=== PATIENT | female | born 1985 | race Caucasian/White ===

== ENCOUNTER → 2016-09-06 | Outpatient (CLI) | payer BC ==
--- NOTE | 2016-09-06 17:00 | US ---
Examination: Greater than 14 weeks transabdominal ultrasound with color Doppler and M-mode evaluatio n. HISTORY: FINDINGS: LMP is 04/12/2016 EVALUATION: Posterior placenta with a cephalic lie and grade 1. Visually amniotic fluid is wit hin normal limits. Three-vessel cord is seen. Ventricles are within normal limits. Four chamber heart is noted. Heart rate is 153 beats per minute. BIOMETRY AND GESTATIONAL AGE: Biparietal diameter 4.6 cm. The abdominal circumference measures 14.9 cm. The femoral length is 3.4 cm with head circumference of 17.1 cm. Gestational age is 20 weeks and 0 days. The expected date of delivery is approximately 01/24/2017. Fetus weight is 348 grams. Overall the fetus is in the 15th per centile. Other detail anatomy summarized into PACs sheet after the images. No anatomical anomalies. IMPRESSION: Single active IU with cephalic fetus. Posterior placenta with grade 1, no placenta previa. No anomalies are seen. Amniotic fluid appears within normal limits.
== END ==
LOC: MW.US 14:00
PROVIDERS: ATTEND Obstetrics & Gynecology
DX: Z34.92 Encounter for supervision of normal pregnancy, unspecified, second trimester (principal); Z3A.20 20 weeks gestation of pregnancy
CPT/HCPCS: 76805; 76805-26

== ENCOUNTER → 2016-09-13 | Outpatient (CLI) | payer BC | LOC: MW.CHOBGYN 13:08 | PROVIDERS: ATTEND Obstetrics & Gynecology | DX: Z34.90 Encounter for supervision of normal pregnancy, unspecified, unspecified trimester (principal) | CPT/HCPCS: 81003 ==

== ENCOUNTER → 2016-10-11 | Outpatient (CLI) | payer BC | LOC: MW.CHOBGYN 09:05 | PROVIDERS: ATTEND Obstetrics & Gynecology | DX: Z34.90 Encounter for supervision of normal pregnancy, unspecified, unspecified trimester (principal) | CPT/HCPCS: 36415; 81003; 82950; 85027 ==

== ENCOUNTER → 2016-11-08 | Outpatient (CLI) | payer BC | LOC: MW.OBCHECK 13:04 → MW.CHOBGYN 13:04 | PROVIDERS: ATTEND Obstetrics & Gynecology | DX: Z34.90 Encounter for supervision of normal pregnancy, unspecified, unspecified trimester (principal) | CPT/HCPCS: 81003 ==

== ENCOUNTER 2017-01-18 02:36 | Inpatient (IN) | payer SELFPAY ==
[2017-01-18] MEDS ORDERED: Carboprost Tromethamine 250 MCG/1 ML Amp IM PRN (03:38)
[2017-01-18] MEDS ORDERED: Methylergonovine 0.2 MG/1 ML Amp IM PRN (03:38)
[2017-01-18] MEDS ORDERED: Nalbuphine 10 MG/1 ML Vial IVPUSH PRN (03:38)
[2017-01-18] MEDS ORDERED: Misoprostol 200 MCG Tab PO PRN (03:38)
[2017-01-18] MEDS ORDERED: Lidocaine 1% 50 ML MDV INJECT PRN (03:38)
[2017-01-18] MEDS ORDERED: Sodium Chloride 0.9% 2.5 ML Syringe FLUSH PRN (03:38)
[2017-01-18] MEDS ORDERED: Water For Irrigation,Sterile 1,000 ML Container IRR PRN (03:38)
[2017-01-18] MEDS ORDERED: Butorphanol 1 MG/ML SDV IVPUSH PRN (03:38)
[2017-01-18] MEDS ORDERED: Sodium Chloride 0.9% 10 ML Syringe FLUSH PRN (03:38)
[2017-01-18] MEDS ORDERED: Oxytocin/Lactated Ringers 30 UNIT/500 ML BAG IV ONE (03:39)
[2017-01-18] MEDS ORDERED: Lactated Ringers 1,000 ML IV SCH (03:45)
[2017-01-18] MEDS ORDERED: Oxytocin/Lactated Ringers 30 UNIT/500 ML BAG ONE (08:04)
--- NOTE | 2017-01-18 09:01 | PCM.LDHP ---
L&D History of Present Illness - General Date of Service: 01/18/17 Admit Problem/Dx: Patient Status Order with Admit Dx/Problem 01/18/17 03:04 Patient Status [ADT] Routine 01/18/17 03:38 Patient Status [ADT] Routine Admission Diagnosis/Problem Admission Diagnosis/Problem 01/18/17 08:58 31 yo EDC 07/28/2016 39wks O+, RI, GBS neg. Admit for SROM clear Source of Information: Patient History Limitations: Reports: No Limitations - History of Present Illness Pain Score: 0 Improves with: Reports: None Worsens with: Reports: None Associated Symptoms: Reports: N - Related Data Allergies/Adverse Reactions: Allergies Allergy/AdvReac Type Severity Reaction Status Date / Time seasonal allergies Allergy Cannot Uncoded 01/18/17 05:18 Remember Past Medical History - Past Health History Medical/Surgical History: Denies Medical/Surgical History HEENT History: Reports: Other (See Below) Other HEENT History: Wearing contact lenses for nearsightedness ADULT CAREGIVER History: Reports: Hematologic History: Reports: Anemia, Other (See Below) Other Hematologic History: Hx of anemia as a teenager, needed blood transfusion , unknown etiology. Social & Family History - Family History Cardiac: Reports: Hypertension OBGYN: Reports: Hematologic: Reports: Anemia Oncologic: Reports: Lung - Tobacco Use Smoking Status *Q: Never Smoker Second Hand Smoke Exposure: No - Caffeine Use Caffeine Use: Reports: None - Recreational Drug Use Recreational Drug Use: No H&P Review of Systems - Review of Systems: Review Of Systems: See Below General: Reports: No Symptoms HEENT: Reports: No Symptoms Pulmonary: Reports: No Symptoms Cardiovascular: Reports: No Symptoms Gastrointestinal: Reports: No Symptoms Genitourinary: Reports: No Symptoms Musculoskeletal: Reports: No Symptoms Skin: Reports: No Symptoms Psychiatric: Reports: No Symptoms Neurological: Reports: No Symptoms Hematologic/Lymphatic: Reports: No Symptoms Immunologic: Reports: No Symptoms L&D Exam - Exam Exam: See Below - Vital Signs Weight: 69.853 kg - OB Specific Contraction Intensity: Strong Movement: Active Heart Tones: Present Heart Rate (FHR) Variability: Moderate (6-25 bmp) Presentation: Vertex Estimated Weight: 3500 - Exam General: Alert, Oriented, Cooperative HEENT: Hearing Intact Lungs: Normal Respiratory Effort Cardiovascular: Regular Rhythm Abdomen: Soft (gravid) Rectal Exam: Deferred Genitourinary: Normal external exam, Normal bimanual exam, Cervical dilitation, Cervical fluid Back Exam: Full Range of Motion Extremities: Normal Inspection Skin: Warm, Dry, Intact Neurological: Cranial Nerves Intact Psychiatric: Alert, Normal Affect, Normal Mood - Patient Data Lab Results Last 24 hrs: Laboratory Results - last 24 hr 01/18/17 01/18/17 01/18/17 Range/Units 02:52 02:52 03:47 WBC 8.52 (4.0-11.0) K/uL RBC 3.90 L (4.30-5.90) M/uL Hgb 10.5 L (12.0-16.0) g/dL Hct 32.5 L (36.0-46.0) % MCV 83.3 (80.0-98.0) fL MCH 26.9 L (27.0-32.0) pg MCHC 32.3 (31.0-37.0) g/dL RDW Std Deviation 47.3 (28.0-62.0) fl RDW Coeff of Samuel 16 H (11.0-15.0) % Plt Count 318 (150-400) K/uL MPV 10.50 (7.40-12.00) fL Nucleated RBC % 0.0 /100WBC Nucleated RBCs # 0 K/uL Urine Color YELLOW Urine Appearance CLEAR Urine pH 6.0 (5.0-8.0) Ur Specific [place] 1.010 (1.001-1.035) Urine Protein NEGATIVE (NEGATIVE) mg/dL Urine Glucose (UA) NEGATIVE (NEGATIVE) mg/dL Urine Ketones TRACE H (NEGATIVE) mg/dL Urine Occult Blood NEGATIVE (NEGATIVE) Urine Nitrite NEGATIVE (NEGATIVE) Urine Bilirubin NEGATIVE (NEGATIVE) Urine Urobilinogen 1.0 (<2.0) EU/dL Ur Leukocyte Esterase NEGATIVE (NEGATIVE) Membrane Rupture POSITIVE Blood Type Antibody Screen 01/18/17 Range/Units 03:47 WBC (4.0-11.0) K/uL RBC (4.30-5.90) M/uL Hgb (12.0-16.0) g/dL Hct (36.0-46.0) % MCV (80.0-98.0) fL MCH (27.0-32.0) pg MCHC (31.0-37.0) g/dL RDW Std Deviation (28.0-62.0) fl RDW Coeff of Samuel (11.0-15.0) % Plt Count (150-400) K/uL MPV (7.40-12.00) fL Nucleated RBC % /100WBC Nucleated RBCs # K/uL Urine Color Urine Appearance Urine pH (5.0-8.0) Ur Specific [place] (1.001-1.035) Urine Protein (NEGATIVE) mg/dL Urine Glucose (UA) (NEGATIVE) mg/dL Urine Ketones (NEGATIVE) mg/dL Urine Occult Blood (NEGATIVE) Urine Nitrite (NEGATIVE) Urine Bilirubin (NEGATIVE) Urine Urobilinogen (<2.0) EU/dL Ur Leukocyte Esterase (NEGATIVE) Membrane Rupture Blood Type O POSITIVE Antibody Screen NEGATIVE Result Diagrams: 01/18/17 03:47 - Problem List (1) Supervision of normal IUP (intrauterine ) in multigravida SNOMED Code(s): 878669741, 536235791, 294607985 ICD Code: Z34.80 - ENCOUNTER FOR SUPRVSN OF NORMAL , UNSP TRIMESTER Status: Acute Priority: High Current Visit: Yes Qualifiers: Trimester: third trimester Qualified Code(s): Z34.83 - Encounter for supervision of other normal , third trimester (2) SROM (spontaneous rupture of membranes) SNOMED Code(s): 048724815 ICD Code: [id number] - Status: Acute Priority: High Current Visit: Yes Problem List Initiated/Reviewed/Updated: Yes Orders Last 24hrs: Active Orders 24 hr Category Date Time Status Patient Status [ADT] Routine ADT 01/18/17 03:04 Active Patient Status [ADT] Routine ADT 01/18/17 03:38 Active Heart Tones [RC] CONTINUOUS Care 01/18/17 03:38 Active Non Stress Test [RC] PER UNIT ROUTINE Care 01/18/17 03:04 Active Non Stress Test [RC] PER UNIT ROUTINE Care 01/18/17 03:38 Active May Shower [RC] ASDIRECTED Care 01/18/17 03:38 Active Notify Provider [RC] PRN Care 01/18/17 03:38 Active Up ad Loni [RC] ASDIRECTED Care 01/18/17 03:04 Active Up ad Loni [RC] ASDIRECTED Care 01/18/17 03:38 Active Vaginal Exam [RC] Click To Edit Care 01/18/17 03:04 Active Vaginal Exam [RC] PRN Care 01/18/17 03:38 Active Vital Signs [RC] PER UNIT ROUTINE Care 01/18/17 03:04 Active Vital Signs [RC] PER UNIT ROUTINE Care 01/18/17 03:38 Active Butorphanol [Stadol] Med 01/18/17 03:38 Active 1 mg IVPUSH Q1H PRN Carboprost Tromethamine [Hemabate DS] Med 01/18/17 03:38 Active 250 mcg IM ASDIRECTED PRN Lactated Ringers [Ringers, Lactated] 1,000 ml Med 01/18/17 03:45 Active IV ASDIRECTED Lidocaine 1% [Xylocaine 1%] Med 01/18/17 03:38 Active 50 ml INJECT .ONCE PRN Methylergonovine [Methergine] Med 01/18/17 03:38 Active 0.2 mg IM ASDIRECTED PRN Misoprostol [Cytotec] Med 01/18/17 03:38 Active 200 mcg PO .ONCE PRN Sodium Chloride 0.9% [Saline Flush] Med 01/18/17 03:38 Active 10 ml FLUSH ASDIRECTED PRN Sodium Chloride 0.9% [Saline Flush] Med 01/18/17 03:38 Active 2.5 ml FLUSH ASDIRECTED PRN Water For Irrigation,Sterile [Sterile Water for Med 01/18/17 03:38 Active Irrigation] 1,000 ml IRR ASDIRECTED PRN Scalp Electrode [WOMSER] Per Unit Routine Oth 01/18/17 03:38 Ordered Peripheral IV Insertion Adult [OM.PC] Routine Oth 01/18/17 03:38 Ordered Resuscitation Status Routine Resus Stat 01/18/17 03:04 Ordered Medication Orders Butorphanol Tartrate (Stadol) 1 mg IVPUSH Q1H PRN PRN Reason: Pain Last Admin: 01/18/17 04:40 Dose: 1 mg Carboprost Tromethamine (Hemabate Ds) 250 mcg IM ASDIRECTED PRN PRN Reason: Post Hemorrhage Lactated Ringer's (Ringers, Lactated) 1,000 mls @ 150 mls/hr IV ASDIRECTED JEREMY Last Admin: 01/18/17 03:50 Dose: 999 mls/hr Lidocaine HCl (Xylocaine 1%) 50 ml INJECT .ONCE PRN PRN Reason: Laceration repair Methylergonovine Maleate (Methergine) 0.2 mg IM ASDIRECTED PRN PRN Reason: Post Hemorrhage Misoprostol (Cytotec) 200 mcg PO .ONCE PRN PRN Reason: Post Hemorrhage Sodium Chloride (Saline Flush) 10 ml FLUSH ASDIRECTED PRN PRN Reason: Keep Vein Open Sodium Chloride (Saline Flush) 2.5 ml FLUSH ASDIRECTED PRN PRN Reason: Keep Vein Open Sterile Water (Sterile Water For Irrigation) 1,000 ml IRR ASDIRECTED PRN PRN Reason: delivery Assessment/Plan Comment:: Labor A: 31 yo EDC 07/28/2016 39wks O+, RI, GBS neg. Admit for SROM clear P: Admit to l&D, anticipate
--- NOTE | 2017-01-18 09:07 | PCM.DEL ---
L & D Note - General Info Date of Service: 01/18/17 Mother's Due Date: 01/25/17 - Delivery Note Labor: spontaneous Delivery Outcome: Livebirth Infant Delivery Method: Spontaneous Vaginal Delivery Infant Delivery Mode: Spontaneous Presentation: Vertex Nuchal Cord: Present Anesthesia Type: None Episiotomy Type: None Laceration: none Placenta: intact, spontaneous Cord: 3 vessels Estimated Blood Loss: 100 Resuscitation Needed: No : Stimulated Score 1 min: 8 Score 5 min: 9 Second Stage Interventions: Reports: Pushing Effectively, Pushing, Knee Chest Position, Pushing, McRobert's Position, Pushing, Pulls Own Legs Back Delivery Comments (Free Text/Narrative):: of viable female over intact perineum, Head delivered with great pushing, shoulders and body followed easily. Infant to mother abd, spont cry, RN at bs for eval. Delayed cord clamping. Pitocin to IVF. Cord clamped x2 and cut by FOB. Cord blood collected. Placenta delivered grossly intact with gentle traction. Inspection noted intact perineum. EBL 100cc. APGARS 8/9, Wt: pending bonding. Counts correct 04/21. Mother and baby left in stable condition for recovery with FOB at bs. Beautiful delivery... - General Info Date of Service: 01/18/17 Admission Dx/Problem (Free Text): Patient Status Order with Admit Dx/Problem 01/18/17 03:04 Patient Status [ADT] Routine 01/18/17 03:38 Patient Status [ADT] Routine Admission Diagnosis/Problem Admission Diagnosis/Problem 01/18/17 08:58 31 yo EDC 07/28/2016 39wks O+, RI, GBS neg. Admit for SROM clear Functional Status: Reports: pain controlled, tolerating diet, urinating - Review of Systems General: Reports: No Symptoms HEENT: Reports: no symptoms Pulmonary: Reports: no symptoms Cardiovascular: Reports: No Symptoms Gastrointestinal: Reports: No symptoms Genitourinary: Reports: no symptoms Musculoskeletal: Reports: no symptoms Skin: Reports: no symptoms Neurological: Reports: No Symptoms Psychiatric: Reports: no symptoms - Patient Data Weight - most recent: 69.853 kg Lab Results last 24 hrs: Laboratory Results - last 24 hr 01/18/17 01/18/17 01/18/17 Range/Units 02:52 02:52 03:47 WBC 8.52 (4.0-11.0) K/uL RBC 3.90 L (4.30-5.90) M/uL Hgb 10.5 L (12.0-16.0) g/dL Hct 32.5 L (36.0-46.0) % MCV 83.3 (80.0-98.0) fL MCH 26.9 L (27.0-32.0) pg MCHC 32.3 (31.0-37.0) g/dL RDW Std Deviation 47.3 (28.0-62.0) fl RDW Coeff of Samuel 16 H (11.0-15.0) % Plt Count 318 (150-400) K/uL MPV 10.50 (7.40-12.00) fL Nucleated RBC % 0.0 /100WBC Nucleated RBCs # 0 K/uL Urine Color YELLOW Urine Appearance CLEAR Urine pH 6.0 (5.0-8.0) Ur Specific [place] 1.010 (1.001-1.035) Urine Protein NEGATIVE (NEGATIVE) mg/dL Urine Glucose (UA) NEGATIVE (NEGATIVE) mg/dL Urine Ketones TRACE H (NEGATIVE) mg/dL Urine Occult Blood NEGATIVE (NEGATIVE) Urine Nitrite NEGATIVE (NEGATIVE) Urine Bilirubin NEGATIVE (NEGATIVE) Urine Urobilinogen 1.0 (<2.0) EU/dL Ur Leukocyte Esterase NEGATIVE (NEGATIVE) Membrane Rupture POSITIVE Blood Type Antibody Screen 01/18/17 Range/Units 03:47 WBC (4.0-11.0) K/uL RBC (4.30-5.90) M/uL Hgb (12.0-16.0) g/dL Hct (36.0-46.0) % MCV (80.0-98.0) fL MCH (27.0-32.0) pg MCHC (31.0-37.0) g/dL RDW Std Deviation (28.0-62.0) fl RDW Coeff of Samuel (11.0-15.0) % Plt Count (150-400) K/uL MPV (7.40-12.00) fL Nucleated RBC % /100WBC Nucleated RBCs # K/uL Urine Color Urine Appearance Urine pH (5.0-8.0) Ur Specific [place] (1.001-1.035) Urine Protein (NEGATIVE) mg/dL Urine Glucose (UA) (NEGATIVE) mg/dL Urine Ketones (NEGATIVE) mg/dL Urine Occult Blood (NEGATIVE) Urine Nitrite (NEGATIVE) Urine Bilirubin (NEGATIVE) Urine Urobilinogen (<2.0) EU/dL Ur Leukocyte Esterase (NEGATIVE) Membrane Rupture Blood Type O POSITIVE Antibody Screen NEGATIVE Med Orders - Current: Current Medications Butorphanol Tartrate (Stadol) 1 mg IVPUSH Q1H PRN PRN Reason: Pain Last Admin: 01/18/17 04:40 Dose: 1 mg Carboprost Tromethamine (Hemabate Ds) 250 mcg IM ASDIRECTED PRN PRN Reason: Post Hemorrhage Lactated Ringer's (Ringers, Lactated) 1,000 mls @ 150 mls/hr IV ASDIRECTED JEREMY Last Admin: 01/18/17 03:50 Dose: 999 mls/hr Lidocaine HCl (Xylocaine 1%) 50 ml INJECT .ONCE PRN PRN Reason: Laceration repair Methylergonovine Maleate (Methergine) 0.2 mg IM ASDIRECTED PRN PRN Reason: Post Hemorrhage Misoprostol (Cytotec) 200 mcg PO .ONCE PRN PRN Reason: Post Hemorrhage Sodium Chloride (Saline Flush) 10 ml FLUSH ASDIRECTED PRN PRN Reason: Keep Vein Open Sodium Chloride (Saline Flush) 2.5 ml FLUSH ASDIRECTED PRN PRN Reason: Keep Vein Open Sterile Water (Sterile Water For Irrigation) 1,000 ml IRR ASDIRECTED PRN PRN Reason: delivery Discontinued Medications Oxytocin/Lactated Ringer's (Pitocin In Lr 30 Units/500 Ml) 30 unit in 500 mls @ 999 mls/hr IV ONETIME ONE Stop: 01/18/17 04:09 Oxytocin/Lactated Ringer's (Pitocin In Lr 30 Units/500 Ml) Confirm Administered Dose 30 unit in 500 mls @ as directed .ROUTE .STK-MED ONE Stop: 01/18/17 08:05 Nalbuphine HCl (Nubain) 10 mg IVPUSH Q1H PRN PRN Reason: Pain (severe 7-10) Stop: 01/18/17 05:39 - Exam General: alert, oriented, cooperative, no acute distress Lungs: Normal respiratory effort Abdomen: soft, no tenderness, no distension (Female) Exam: Normal External Exam, Normal Bimanual Exam, Vaginal Bleeding Back Exam: Full Range of Motion Extremities: no edema, no tenderness/swelling Skin: warm, dry, intact Wound/Incisions: healing well Neurological: no new focal deficit, normal speech, normal tone Psy/Mental Status: alert, normal affect, normal mood - Problem List & Annotations (1) Supervision of normal IUP (intrauterine ) in multigravida SNOMED Code(s): 068036051, 528458465, 131453188 Code(s): Z34.80 - ENCOUNTER FOR SUPRVSN OF NORMAL , UNSP TRIMESTER Status: Acute Priority: High Current Visit: Yes Qualifiers: Trimester: third trimester Qualified Code(s): Z34.83 - Encounter for supervision of other normal , third trimester (2) SROM (spontaneous rupture of membranes) SNOMED Code(s): 110453276 Code(s): IKE4302 - Status: Acute Priority: High Current Visit: Yes (3) (normal spontaneous vaginal delivery) SNOMED Code(s): 78937340 Code(s): O80 - ENCOUNTER FOR FULL-TERM UNCOMPLICATED DELIVERY Status: Acute Priority: Medium Current Visit: Yes - Problem List Review Problem List Initiated/Reviewed/Updated: Yes - Assessment Assessment:: of viable female with spont cry. APGARS 8/9. Wt: pending. Intact perineum, EBL 100cc, Mother and baby stable for recovery. - Plan Plan:: Labor A: 31 yo EDC 07/28/2016 39wks O+, RI, GBS neg. Admit for SROM clear P: Admit to l&D, anticipate Post P: routine pp plan of care.
[2017-01-18] MEDS ORDERED: Ibuprofen 400 MG Tab PO PRN (09:09)
[2017-01-18] MEDS ORDERED: Docusate Sodium 100 MG Cap PO PRN (09:09)
[2017-01-18] MEDS ORDERED: Lanolin 100% Cream 7 GM Tube TOP PRN (09:09)
[2017-01-18] MEDS ORDERED: Witch Hazel Medicated Pads 40/Jar TOP PRN (09:09)
[2017-01-18] MEDS ORDERED: Benzocaine/Menthol 20%-0.5% Spray 78 GM Cannister TOP PRN (09:09)
[2017-01-18] MEDS ORDERED: Bisacodyl 10 MG Supp RECTAL PRN (09:09)
[2017-01-18] MEDS ORDERED: Acetaminophen 500 MG Tab PO PRN ×2 (09:09)
[2017-01-18] MEDS: Ibuprofen 800 MG Tab PO PRN ×2 (09:19→17:31)
[2017-01-18] MEDS: oxyCODONE 5 MG Tab PO PRN ×3 (11:40→21:55)
[2017-01-19] MEDS: Ibuprofen 800 MG Tab PO PRN (03:12)
[2017-01-19] MEDS: oxyCODONE 5 MG Tab PO PRN (03:13)
[2017-01-19 04:29] VITALS: BP 104/61
--- NOTE | 2017-01-19 08:19 | PCM.DCSUM1 ---
Discharge Summary - Hospital Course Free Text/Narrative:: Discharge home with infant. Follow up 6 weeks or sooner if needed. - Discharge Data Discharge Date: 01/19/17 Discharge Disposition: Home, Self-Care 01 Condition: Good - Discharge Diagnosis/Problem(s) (1) Supervision of normal IUP (intrauterine ) in multigravida SNOMED Code(s): 002717945, 885570099, 923241931 ICD Code: Z34.80 - ENCOUNTER FOR SUPRVSN OF NORMAL , UNSP TRIMESTER Status: Acute Priority: High Current Visit: Yes Qualifiers: Trimester: third trimester Qualified Code(s): Z34.83 - Encounter for supervision of other normal , third trimester (2) SROM (spontaneous rupture of membranes) SNOMED Code(s): 569931825 ICD Code: UXT8020 - Status: Acute Priority: High Current Visit: Yes (3) (normal spontaneous vaginal delivery) SNOMED Code(s): 10600197 ICD Code: O80 - ENCOUNTER FOR FULL-TERM UNCOMPLICATED DELIVERY Status: Acute Priority: Medium Current Visit: Yes - Patient Instructions Diet: Usual Diet as Tolerated Activity: As Tolerated, Rest and Relax Today Driving: Do Not Drive Showering/Bathing: May Shower Notify Provider of: Fever, Increased Pain, Nausea and/or Vomiting Other/Special Instructions: Discharge home with infant. Follow up 6 weeks or sooner if needed. - Discharge Plan Referrals: [facility] [Outside] Antonio Priest MD [Primary Care Provider] - 02/28/17 3:00 pm - General Info Date of Service: 01/19/17 Functional Status: Reports: pain controlled, tolerating diet, ambulating, urinating - Review of Systems General: Reports: No Symptoms HEENT: Reports: no symptoms Pulmonary: Reports: no symptoms Cardiovascular: Reports: No Symptoms Gastrointestinal: Reports: No symptoms Genitourinary: Reports: no symptoms Musculoskeletal: Reports: no symptoms Skin: Reports: no symptoms Neurological: Reports: No Symptoms Psychiatric: Reports: no symptoms - Patient Data Vitals - Most Recent: Last Vital Signs Temp 36.6 C 01/19/17 04:00 Pulse 68 01/19/17 04:00 Resp 16 01/19/17 04:00 BP 104/61 01/19/17 04:00 Pulse Ox 98 01/19/17 04:00 Weight - Most Recent: 69.853 kg Med Orders - Current: Current Medications Acetaminophen (Tylenol Extra Strength) 500 mg PO Q4H PRN PRN Reason: Pain Acetaminophen (Tylenol Extra Strength) 1,000 mg PO Q4H PRN PRN Reason: Pain Last Admin: 01/18/17 20:55 Dose: 1,000 mg Benzocaine/Menthol (Dermoplast Pain Relief 20%-0.5% [place]) 78 gm TOP ASDIRECTED PRN PRN Reason: Perineal Comfort Measure Bisacodyl (Dulcolax) 10 mg RECTAL .ONCE PRN PRN Reason: Constipation Docusate Sodium (Colace) 100 mg PO BID PRN PRN Reason: Constipation Last Admin: 01/18/17 09:19 Dose: 100 mg Emollient Ointment (Lansinoh Hpa) 0 gm TOP ASDIRECTED PRN PRN Reason: Sore Nipples Ibuprofen (Motrin) 400 mg PO Q4H PRN PRN Reason: Pain Ibuprofen (Motrin) 800 mg PO Q6H PRN PRN Reason: Pain Last Admin: 01/19/17 03:12 Dose: 800 mg Oxycodone HCl (Oxycodone) 5 mg PO Q2H PRN PRN Reason: Pain Last Admin: 01/19/17 03:13 Dose: 5 mg Witch Maura (Tucks) 1 pad TOP ASDIRECTED PRN PRN Reason: comfort care Discontinued Medications Butorphanol Tartrate (Stadol) 1 mg IVPUSH Q1H PRN PRN Reason: Pain Last Admin: 01/18/17 04:40 Dose: 1 mg Carboprost Tromethamine (Hemabate Ds) 250 mcg IM ASDIRECTED PRN PRN Reason: Post Hemorrhage Oxytocin/Lactated Ringer's (Pitocin In Lr 30 Units/500 Ml) 30 unit in 500 mls @ 999 mls/hr IV ONETIME ONE Stop: 01/18/17 04:09 Last Admin: 01/18/17 08:46 Dose: 999 mls/hr Lactated Ringer's (Ringers, Lactated) 1,000 mls @ 150 mls/hr IV ASDIRECTED JEREMY Last Admin: 01/18/17 03:50 Dose: 999 mls/hr Oxytocin/Lactated Ringer's (Pitocin In Lr 30 Units/500 Ml) Confirm Administered Dose 30 unit in 500 mls @ as directed .ROUTE .STK-MED ONE Stop: 01/18/17 08:05 Lidocaine HCl (Xylocaine 1%) 50 ml INJECT .ONCE PRN PRN Reason: Laceration repair Methylergonovine Maleate (Methergine) 0.2 mg IM ASDIRECTED PRN PRN Reason: Post Hemorrhage Misoprostol (Cytotec) 200 mcg PO .ONCE PRN PRN Reason: Post Hemorrhage Nalbuphine HCl (Nubain) 10 mg IVPUSH Q1H PRN PRN Reason: Pain (severe 7-10) Stop: 01/18/17 05:39 Sodium Chloride (Saline Flush) 10 ml FLUSH ASDIRECTED PRN PRN Reason: Keep Vein Open Sodium Chloride (Saline Flush) 2.5 ml FLUSH ASDIRECTED PRN PRN Reason: Keep Vein Open Sterile Water (Sterile Water For Irrigation) 1,000 ml IRR ASDIRECTED PRN PRN Reason: delivery - Exam General: Reports: alert, oriented, cooperative, no acute distress Lungs: Reports: Normal respiratory effort Abdomen: Reports: soft, no tenderness, no distension (Female) Exam: Vaginal Bleeding Rectal (Female) Exam: Deferred Back Exam: Reports: Full Range of Motion Extremities: Reports: no edema, normal pulses, no tenderness/swelling, no calf tenderness Skin: Reports: warm, dry, intact Neurological: Reports: no new focal deficit, normal speech, normal tone Psy/Mental Status: Reports: alert, normal affect, normal mood *Q Meaningful Use (DIS) - VTE *Q VTE Criteria *Q: - Stroke *Q Stroke Criteria *Q: - AMI *Q AMI Criteria *Q:
== END 2017-01-19 11:25 | disposition home or self-care (01) | DRG 775 ==
LOC: EEVIPCON 02:36 → MW.OB 02:36 → MW.OBCHECK 02:36 → OBSVTOIN 03:38 → MW.OB 03:38
PROVIDERS: ADMIT Obstetrics & Gynecology; ATTEND Obstetrics & Gynecology
PROC: 10E0XZZ Delivery of Products of Conception, External Approach (ICD-10-PCS; principal; 2017-01-18)
DX: O42.02 Full-term premature rupture of membranes, onset of labor within 24 hours of rupture (principal); Z3A.39 39 weeks gestation of pregnancy; Z37.0 Single live birth
CPT/HCPCS: 59025; 81003; 84112; 85027; 86850; 86900; 86901; A9270-GY; J0595; J7120

== ENCOUNTER 2019-09-16 01:43 | Emergency (ER) | payer SELFPAY ==
[2019-09-16 02:59] LABS: BLOOD UREA NITROGEN,BUN 12 mg/dL (7.0-18.0); CARBON DIOXIDE,CO2 21.4 mmol/L (21.0-32.0); CHLORIDE,CL 104 mmol/L (98-107); GLUCOSE RANDOM 96 mg/dL (74-106); LIPASE 72 U/L (73-393); POTASSIUM,K 3.9 mmol/L (3.5-5.1); SODIUM,NA 140 mmol/L (136-145)
[2019-09-16] MEDS ORDERED: Ondansetron 4 MG/2 ML SDV IVPUSH ONE (03:09)
[2019-09-16] MEDS ORDERED: Ketorolac 30 MG/ML SDV IVPUSH ONE (03:09)
[2019-09-16] MEDS ORDERED: Sodium Chloride 0.9% 1,000 ML IV ONE (03:09)
[2019-09-16] MEDS ORDERED: Sodium Chloride 0.9% 10 ML Syringe FLUSH PRN (03:09)
[2019-09-16] MEDS ORDERED: Sodium Chloride 0.9% 2.5 ML Syringe FLUSH PRN (03:09)
--- NOTE | 2019-09-16 04:17 | EDM.PDOC ---
ED HPI GENERAL MEDICAL PROBLEM - General Chief Complaint: Abdominal Pain Stated Complaint: ABD PAIN Time Seen by Provider: 09/16/19 03:00 Source of Information: Reports: Patient - History of Present Illness INITIAL COMMENTS - FREE TEXT/NARRATIVE: The patient is a 34-year-old female who presents to the ER secondary to abdominal pain and nausea and vomiting. The patient states that several days ago she started with diarrhea and then eventually the diarrhea went away and over the last couple days she has been having epigastric and right upper quadrant abdominal pain along with intermittent nausea and vomiting. No fevers , no back pain, no lower abdominal pain, no dysuria urinary frequency. She has not had any chills but she just feels generally weak. Abdomen Pain Score (Numeric/FACES): 10 - Related Data Allergies Allergy/AdvReac Type Severity Reaction Status Date / Time seasonal allergies Allergy Cannot Uncoded 09/16/19 01:57 Remember Home Meds: Home Meds Hyoscyamine Sulfate 0.125 mg SL Q4HR PRN 10 Days #30 tab.subl 09/16/19 [Rx] Ondansetron [Zofran ODT] 4 mg PO Q4H PRN 5 Days #20 tab.dis 09/16/19 [Rx] Past Medical History - Past Health History Medical/Surgical History: Denies Medical/Surgical History HEENT History: Reports: Other (See Below) Other HEENT History: Wearing contact lenses for nearsightedness Cardiovascular History: Reports: None Respiratory History: Reports: None Gastrointestinal History: Reports: None Genitourinary History: Reports: None [employer] History: Reports: Musculoskeletal History: Reports: None Neurological History: Reports: None Psychiatric History: Reports: None Endocrine/Metabolic History: Reports: None 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 Immunologic History: Reports: None Oncologic (Cancer) History: Reports: None Dermatologic History: Reports: None - Infectious Disease History Infectious Disease History: Reports: None - Past Surgical History Head Surgeries/Procedures: Reports: None Female Surgical History: Reports: None Social & Family History - Family History Family Medical History: Noncontributory Cardiac: Reports: Hypertension OBGYN: Reports: Hematologic: Reports: Anemia Oncologic: Reports: Lung - Tobacco Use Smoking Status *Q: Never Smoker - Caffeine Use Caffeine Use: Reports: Coffee - Recreational Drug Use Recreational Drug Use: No ED ROS GENERAL - Review of Systems Review Of Systems: See Below (Negative for fevers, positive for malaise, positive for diarrhea that has resolved, positive for abdominal pain, nausea and vomiting, negative shortness of breath, all other Positives and pertinent negatives as per HPI. All other pertinent systems were reviewed and are negative ) ED EXAM, GI/ABD - Physical Exam Exam: See Below Text/Narrative:: Constitutional: No acute distress, Non-toxic appearance, looks like she does not feel well HEENT.: Normocephalic, Atraumatic, PERRL, EOMI, External ears are atraumatic, Oropharynx clear and mildly dry without lesions or masses, nares are patent without epistaxis Neck: Normal range of motion, Trachea Midline, No stridor Respiratory.: No respiratory distress, No tachypnea, Lungs Clear to Auscultation bilaterally without wheezes, rales, or rhonchi Cardiovascular.: Regular rate and Rhythm without murmurs, rubs, or gallops, good peripheral perfusion GI: Abdomen soft and nondistended, there is some mild epigastric and right upper quadrant tenderness without any rebound, rigidity or guarding Genital Urinary: Deferred Musculoskeletal: Good range of motion. All 4 extremities present and atraumatic , no edema Back: Full Range of Motion Skin: Warm, Dry, Color is ethnicity appropriate, No acute rash. Lymphatic: No lymphadenopathy noted Neurological: Alert, Awake and oriented x 3, No focal deficits noted appreciate , GCS 15 Psych: Affect, Judgement, mood normal Course - Vital Signs Text/Narrative:: The patient has a nonsurgical examination. Standard lab work was drawn and overall is unremarkable. The patient's symptoms were treated with Toradol, Bentyl and Zofran and she states that she feels much better. Given that although the possibility of a viral gastroenteritis is still in play , even if the patient were to have some type of biliary colic, I do not think that we need to continue work-up for ascending cholangitis, choledocholithiasis , etc. she is nontoxic in appearance with a nonsurgical abdomen, etc. She will be provided with primary care follow-up, we discussed dietary changes for now, and she will also be given a prescription for Zofran and Hyoscyamine and is stable for outpatient follow-up. Last Recorded V/S: Last Vital Signs Temp 36.5 C 09/16/19 01:59 Pulse 60 09/16/19 01:59 Resp 18 09/16/19 01:59 BP 106/67 09/16/19 01:59 Pulse Ox 98 09/16/19 01:59 - Orders/Labs/Meds Orders: Active Orders 24 hr Category Date Time Status Sodium Chloride 0.9% [Saline Flush] Med 09/16/19 03:09 Active 10 ml FLUSH ASDIRECTED PRN Sodium Chloride 0.9% [Saline Flush] Med 09/16/19 03:09 Active 2.5 ml FLUSH ASDIRECTED PRN Saline Lock Insert [OM.PC] Stat Oth 09/16/19 03:09 Ordered Medication Orders Sodium Chloride (Saline Flush) 10 ml FLUSH ASDIRECTED PRN PRN Reason: Keep Vein Open Sodium Chloride (Saline Flush) 2.5 ml FLUSH ASDIRECTED PRN PRN Reason: Keep Vein Open Labs: Laboratory Tests 09/16/19 09/16/19 09/16/19 Range/Units 03:30 03:30 03:30 WBC 5.16 (4.0-11.0) K/uL RBC 4.48 (4.30-5.90) M/uL Hgb 12.9 (12.0-16.0) g/dL Hct 38.7 (36.0-46.0) % MCV 86.4 (80.0-98.0) fL MCH 28.8 (27.0-32.0) pg MCHC 33.3 (31.0-37.0) g/dL RDW Std Deviation 42.6 (28.0-62.0) fl RDW Coeff of Samuel 14 (11.0-15.0) % Plt Count 223 (150-400) K/uL MPV 11.10 (7.40-12.00) fL Neut % (Auto) 58.6 (48.0-80.0) % Lymph % (Auto) 26.4 (16.0-40.0) % [place] % (Auto) 10.7 (0.0-15.0) % Eos % (Auto) 4.1 (0.0-7.0) % Baso % (Auto) 0.2 (0.0-1.5) % Neut # (Auto) 3.0 (1.4-5.7) K/uL Lymph # (Auto) 1.4 (0.6-2.4) K/uL [place] # (Auto) 0.6 (0.0-0.8) K/uL Eos # (Auto) 0.2 (0.0-0.7) K/uL Baso # (Auto) 0.0 (0.0-0.1) K/uL Nucleated RBC % 0.0 /100WBC Nucleated RBCs # 0 K/uL Sodium 140 (136-145) mmol/L Potassium 3.9 (3.5-5.1) mmol/L Chloride 104 (98-107) mmol/L Carbon Dioxide 21.4 (21.0-32.0) mmol/L BUN 12 (7.0-18.0) mg/dL Creatinine 0.6 (0.6-1.0) mg/dL Est Cr Clr Drug Dosing 111.93 mL/min Estimated GFR (MDRD) > 60.0 ml/min Glucose 96 (74-106) mg/dL Calcium 8.9 (8.5-10.1) mg/dL Total Bilirubin 0.3 (0.2-1.0) mg/dL AST 14 L (15-37) IU/L ALT 18 (14-63) IU/L Alkaline Phosphatase 82 (46-116) U/L Total Protein 6.8 (6.4-8.2) g/dL Albumin 3.9 (3.4-5.0) g/dL Globulin 2.9 (2.6-4.0) g/dL Albumin/Globulin Ratio 1.3 (0.9-1.6) Lipase 72 L (73-393) U/L HCG, Qual NEGATIVE (NEG) Meds: Medications Generic Name Dose Route Start Last Admin Trade Name Freq PRN Reason Stop Dose Admin Sodium Chloride 10 ml 09/16/19 03:09 Saline Flush FLUSH ASDIRECTED PRN Keep Vein Open Sodium Chloride 2.5 ml 09/16/19 03:09 Saline Flush FLUSH ASDIRECTED PRN Keep Vein Open Discontinued Medications Generic Name Dose Route Start Last Admin Trade Name Freq PRN Reason Stop Dose Admin Sodium Chloride 1,000 mls @ 999 mls/hr 09/16/19 03:09 09/16/19 03:29 Normal Saline IV 09/16/19 04:09 999 mls/hr BOLUS ONE Administration Ketorolac Tromethamine 30 mg 09/16/19 03:09 09/16/19 03:30 Toradol IVPUSH 09/16/19 03:10 30 mg ONETIME ONE Administration Ondansetron HCl 4 mg 09/16/19 03:09 09/16/19 03:29 Zofran IVPUSH 09/16/19 03:10 4 mg ONETIME ONE Administration Departure - Departure Time of Disposition: 04:17 Disposition: Home, Self-Care 01 Condition: Good Clinical Impression: Abdominal pain, Vomiting - Discharge Information *PRESCRIPTION DRUG MONITORING PROGRAM REVIEWED*: Not Applicable *COPY OF PRESCRIPTION DRUG MONITORING REPORT IN PATIENT ALY: Not Applicable Instructions: Abdominal Pain, Adult, [id number], Vomiting, Adult Referrals: PCP,None [Primary Care Provider] - Forms: ED Department Discharge Sepsis Event Note - Evaluation Sepsis Screening Result: No Definite Risk - Focused Exam Vital Signs: Vital Signs Temp Pulse Resp BP Pulse Ox 09/16/19 01:59 36.5 C 60 18 106/67 98 Date Exam was Performed: 09/16/19 Time Exam was Performed: 04:11 - My Orders Last 24 Hours: My Active Orders 09/16/19 03:09 Sodium Chloride 0.9% [Saline Flush] 10 ml FLUSH ASDIRECTED PRN Sodium Chloride 0.9% [Saline Flush] 2.5 ml FLUSH ASDIRECTED PRN Saline Lock Insert [OM.PC] Stat - Assessment/Plan Last 24 Hours: My Active Orders 09/16/19 03:09 Sodium Chloride 0.9% [Saline Flush] 10 ml FLUSH ASDIRECTED PRN Sodium Chloride 0.9% [Saline Flush] 2.5 ml FLUSH ASDIRECTED PRN Saline Lock Insert [OM.PC] Stat
[2019-09-16 04:33] VITALS: BP 107/65; PULSE 55
== END 2019-09-16 04:32 | disposition home or self-care (01) ==
LOC: MW.ED 01:43
DX: R10.9 Unspecified abdominal pain (principal); R11.2 Nausea with vomiting, unspecified
CPT/HCPCS: 36415; 80053; 83690; 84703; 85025; 96361; 96374; 96375; 99284; J1885; J2405; J7030; 99283